=== PATIENT | female | born 1995 | race Caucasian/White ===

== ENCOUNTER 2021-01-08 10:43 | Emergency (ER) | payer OTHER ==
[~2021-01-08 10:43] MED LIST: BENTYL 10MG CAP10 MG PO; COLACE100 MG PO; FLEXERIL 10 MG10 MG PO; IBUPROFEN600 MG PO; MEDROL4 MG PO; METFORMIN ER G500 MG PO; NORCO 5-325 TA1 EACH PO; NORETHINDRONE PO; SPRINTEC 28 DA1 EACH PO; TOPAMAX50 MG PO; ZOFRAN4 MG PO
[2021-01-08] MEDS ORDERED: BACTRIM 400-801 EACH PO (12:15)
[2021-01-08] MEDS ORDERED: DIFLUCAN100 MG PO (12:27)
== END 2021-01-08 12:28 | disposition home or self-care (01) ==
LOC: ER1 10:43
DX: L60.0 Ingrowing nail (principal); Z79.899 Other long term (current) drug therapy; Z88.8 Allergy status to other drugs, medicaments and biological substances
CPT/HCPCS: 99283

== ENCOUNTER 2021-05-19 14:33 | Emergency (ER) | payer OTHER ==
[~2021-05-19 14:33] MED LIST changes: +BACTRIM 400-801 EACH PO; +DIFLUCAN100 MG PO
[2021-05-19] MEDS ORDERED: IBUPROFEN600 MG PO (17:27)
== END 2021-05-19 17:35 | disposition home or self-care (01) ==
LOC: ER1 14:33
DX: S33.5XXA Sprain of ligaments of lumbar spine, initial encounter (principal); V49.50XA Passenger injured in collision with unspecified motor vehicles in traffic accident, initial encounter; Z88.7 Allergy status to serum and vaccine
CPT/HCPCS: 72131; 99284

== ENCOUNTER → 2021-06-01 | Outpatient (CLI) | payer OTHER | LOC: EMI 09:34 | DX: G44.89 Other headache syndrome (principal); G43.109 Migraine with aura, not intractable, without status migrainosus; G44.059 Short lasting unilateral neuralgiform headache with conjunctival injection and tearing (SUNCT), not intractable | CPT/HCPCS: 70551 ==

== ENCOUNTER 2022-02-05 07:56 | Emergency (ER) | payer OTHER ==
[2022-02-05 09:45] LABS: HEMOGLOBIN 13.7 gm/dl (12.3-15.3); RED BLOOD COUNT 4.73 M/UL (4.00-5.10); WHITE BLOOD COUNT 10.7 K/UL (4.5-11.0)
[2022-02-05 10:27] LABS: BUN/CREATININE RATIO 15 (0-10)
[2022-02-05] MEDS ORDERED: CYCLOBENZAPRINE10 MG PO (10:43)
[2022-02-05] MEDS ORDERED: IBUPROFEN600 MG PO (10:43)
== END 2022-02-05 11:00 | disposition home or self-care (01) ==
LOC: ER1 07:56
PROVIDERS: Nurse Practitioner
DX: M62.830 Muscle spasm of back (principal); Z88.7 Allergy status to serum and vaccine
CPT/HCPCS: 80053; 81001; 84702; 84703; 85025; 96374; 96375; 99283; J1885; J2360